=== PATIENT | female | born 1980 | race American Indian/Alaskan Native ===

== ENCOUNTER 2016-12-13 08:43 | Emergency (ER) | payer OTHER ==
[2016-12-13 08:58] VITALS: BP 140/99; PULSE 89; RESP 18; TEMP 98; O2SAT 100
--- NOTE | 2016-12-13 09:21 | C.PDOC ---
History Of Present Illness 36 yr old female presents to the ER with complaints of congestion and stuffy nose for 1 day. Patient states this morning she woke up with generalized achiness, mild headache, slight dry cough and fever. Patient denies any OTC medicine. No chest pain, SOB, nausea, vomiting, abdominal pain, diarrhea, weakness or numbness. Time Seen by Provider: 12/13/16 09:08 Chief Complaint (Nursing): ENT Problem History Per: Patient History/Exam Limitations: None Onset/Duration Of Symptoms: Days (1) Current Symptoms Are (Timing): Still Present Past Medical History Reviewed: Historical Data, Nursing Documentation, Vital Signs Vital Signs: Last Vital Signs Temp 98 F 12/13/16 08:53 Pulse 89 12/13/16 08:53 Resp 18 12/13/16 08:53 BP 140/99 H 12/13/16 08:53 Pulse Ox 100 12/13/16 09:26 - Medical History PMH: HIV, HTN, Kidney Stones Family History: States: No Known Family Hx - Social History Hx Tobacco Use: No Hx Alcohol Use: Yes Hx Substance Use: No - Immunization History Hx Tetanus Toxoid Vaccination: No Hx Influenza Vaccination: No Hx Pneumococcal Vaccination: No Review Of Systems Except As Marked, All Systems Reviewed And Found Negative. (Delcid) Constitutional: Positive for: Fever (Subjective), Other (Generlized achiness) ENT: Positive for: Nose Congestion Cardiovascular: Negative for: Chest Pain Respiratory: Positive for: Cough (Dry ). Negative for: Shortness of Breath Gastrointestinal: Negative for: Nausea, Vomiting, Abdominal Pain, Diarrhea Neurological: Positive for: Headache (Mild). Negative for: Weakness, Numbness Physical Exam - Physical Exam Appears: Well, Non-toxic, No Acute Distress Head: Atraumatic, Normacephalic Eye(s): bilateral: Normal Inspection, PERRL, EOMI Ear(s): Bilateral: Normal Oral Mucosa: Moist Throat: Normal, No Erythema, No Exudate Neck: Normal ROM, Supple Chest: Symmetrical, No Tenderness Cardiovascular: Rhythm Regular, No Murmur Respiratory: Normal Breath Sounds, No Rales, No Rhonchi, No Stridor, No Wheezing Extremity: Normal ROM, No Swelling Neurological/Psych: Oriented x3, Normal Speech, Normal Motor ED Course And Treatment O2 Sat by Pulse Oximetry: 100 Medical Decision Making Medical Decision Making: PLAN: * Naproxen PO Disposition Counseled Patient/Family Regarding: Diagnosis, Need For Followup - Disposition Disposition: HOME/ ROUTINE Disposition Time: 09:19 Condition: FAIR Prescriptions: Oxymetazoline 0.05% [Afrin 0.05%] 2 puff NS Q12H PRN #1 bottle PRN Reason: .nasal congestion Instructions: Upper Respiratory Infection (ED) Forms: Work Excuse - Clinical Impression Clinical Impression: URI (upper respiratory infection) - Scribe Statement The provider has reviewed the documentation as recorded by the Radha Rob Provider Attestation: All medical record entries made by the Radha were at my direction and personally dictated by me. I have reviewed the chart and agree that the record accurately reflects my personal performance of the history, physical exam, medical decision making, and the department course for this patient. I have also personally directed, reviewed, and agree with the discharge instructions and disposition.
[2016-12-13] MEDS ORDERED: Naproxen 550 mg Tab PO STA (09:22)
[2016-12-13] MEDS ORDERED: Naproxen 550 mg Tab PO ONE (09:27)
== END 2016-12-13 09:30 | disposition home or self-care (01) ==
LOC: C.ER 08:43
DX: J06.9 Acute upper respiratory infection, unspecified (principal)